=== PATIENT | female | born 1990 | race Caucasian/White ===

== ENCOUNTER 2018-02-28 19:39 | Emergency (ER) | payer OTHER ==
[2018-02-28 20:34] LABS: KETONE, URINE AUTO RFX NEGATIVE (NEGATIVE); LEUKOCYTE ESTERASE UR AUTO RFX NEGATIVE (NEGATIVE); NITRITE, URINE AUTO RFX NEGATIVE (NEGATIVE); RBC, URINE AUTO RFX 1 /HPF (0-3); SPECIFIC GRAVITY UR AUTO RFX 1.003 (1.002-1.035); SQUAM EPITHELIAL CELL UR AURFX 0 /HPF (0-6); WBC, URINE AUTO RFX 3 /HPF (0-3)
[2018-02-28 20:43] LABS: HEMATOCRIT 40.1 % (36.0-47.0); HEMOGLOBIN 13.1 g/dl (12.0-15.5); MEAN CORPUSCULAR HEMOGLOBIN 30.8 pg (27.0-33.0); MEAN CORPUSCULAR HGB CONC 32.7 g/dl (32.0-36.5); MEAN CORPUSCULAR VOLUME 94.1 fl (80.0-96.0); PLATELET COUNT, AUTOMATED 274 10^3/uL (150-450); RED BLOOD COUNT 4.26 10^6/uL (4.00-5.40); RED CELL DISTRIBUTION WIDTH 13.2 % (11.5-14.5); WHITE BLOOD COUNT 11.3 10^3/uL (4.0-10.0)
[2018-02-28 21:21] LABS: HCG, SERUM QUANTITATIVE 46003 MIU/ML
== END 2018-02-28 23:15 | disposition home or self-care (01) ==
LOC: M ED 19:39
DX: O34.81 Maternal care for other abnormalities of pelvic organs, first trimester (principal); O23.591 Infection of other part of genital tract in pregnancy, first trimester; O26.891 Other specified pregnancy related conditions, first trimester; Z3A.11 11 weeks gestation of pregnancy; Z79.899 Other long term (current) drug therapy
CPT/HCPCS: 76801

== ENCOUNTER 2018-08-24 15:04 | Inpatient (IN) | payer OTHER ==
[2018-08-24] VITALS (10 sets, daily range): BP systolic 125–154; BP diastolic 67–93
[~2018-08-24] VITALS: Ht 157.5 cm; Wt 102.0 kg
[~2018-08-24 15:04] MED LIST: FOLI1TAB11 PO; PRENCHW PO
[2018-08-24] MEDS ORDERED: ACETAMINOPHEN TAB 650MG DOSE (2X325MG) PO ONE (16:00)
--- NOTE | 2018-08-24 16:09 | IPNPDOC ---
Text Note Date of Service The patient was seen on 08/24/18. NOTE 27 y/o at 36+3 with severe range BP's in clinic today. Also with a few days of BEST although has a current sinusitis and pharyngitis, lots of coughing. No LOF/VB/ctx's. Pos FM. No Abd/RUQ pain. Slight visual changes but these have been present most of her , denies scotomata. 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 Had a elevated BP in the clinic in late MAY and a 24 hr UP that was in the 200's. Of note, this baby has a left club foot and she also has an adopted 2 yr old at home. 25FEB 32 weeks grth scan showed 52%ile BP here high normal 1+ LE edema NST at first with minimal rachael but with reposition mod rachael and accels present, no obvious ctx's a/p: Must r/o Pre-E. Ur Pr/Cr and CBC and Pre-E pnl. Cont monitoring for now. Serial BP's. SBAR to Dr Alexis for final dispo/review of labs. Sessions SESSIONS,SYLVIE Hinkle MD Aug 24, 2018 16:09
[2018-08-24 16:32] LABS: HEMATOCRIT 37.6 % (36.0-47.0); HEMOGLOBIN 12.1 g/dl (12.0-15.5); MEAN CORPUSCULAR HEMOGLOBIN 28.5 pg (27.0-33.0); MEAN CORPUSCULAR HGB CONC 32.2 g/dl (32.0-36.5); MEAN CORPUSCULAR VOLUME 88.7 fl (80.0-96.0); PLATELET COUNT, AUTOMATED 252 10^3/uL (150-450); RED BLOOD COUNT 4.24 10^6/uL (4.00-5.40); WHITE BLOOD COUNT 10.9 10^3/uL (4.0-10.0)
[2018-08-24 16:52] LABS: ALT/SGPT 14 U/L (12-78); BILIRUBIN,TOTAL 0.2 MG/DL (0.2-1.0); CREATININE FOR GFR 0.52 MG/DL (0.55-1.30); GLOMERULAR FILTRATION RATE > 60.0 (>60); LDH LACTATE DEHYDROGENASE 199 U/L (84-246)
[2018-08-24 16:55] LABS: CREATININE,RANDOM URINE 50.2 MG/DL; TOTAL PROTEIN,RANDOM URINE 11.1 MG/DL (0.0-12.0)
--- NOTE | 2018-08-24 17:20 | IPNPDOC ---
Text Note Date of Service The patient was seen on 08/24/18. NOTE Triage Note Bernadette is a 27yo at 36w3d who was sent to L&D for further eval when she had severe range BP's in clinic today. She has had a few days of BEST, but she currently has sinusitis and pharyngitis. No scotomata. No RUQ pain. No LOF/VB/ctx's. Pos FM. Notably, she had an elevated BP in the clinic in late May and a 24hr UP then was in the 200's. Jul 32wk growth scan: 52%ile Vitals: bp's normotensive, rare mild range General: WDWN, resting comfortably in bed (voice very hoarse) Abdomen: soft, gravid, NTTP Extremities: 1+ LE edema Cat I FHRT with +accels, -decels (appearance of decel when she put herself back on the monitor after using restroom but not true decel), mod rachael [place]: occasional ctx Labs: CBC: WBC 10.9, H/H 12.1/37.6, plt 252 creat 0.52, AST 13, ALT 14 urine prot/creat 0.22 Assessment: Bernadette is a 27yo at 36w3d with new diagnosis of GHTN, but no e/o pre-eclampsia. Normal creat/LFTs/H&H/plt and urine prot:creat 0.22. Vitals show normal to mild range bp. Benign exam. Reassuring assessment. Plan: -discharge home -plan for NST in two days on 08/26 and then 2x/week after that -discussed that patient will be induced with timing based on blood pressures -return precautions discussed Dr. Antonina Alexis MD VS,Porfirio, I+O VS, Porfirio I+O Laboratory Tests 08/24/18 16:14 Red Blood Count 4.24, Mean Corpuscular Volume 88.7, Mean Corpuscular Hemoglobin 28.5, Mean Corpuscular Hemoglobin Concent 32.2, Red Cell Distribution Width 15.3 H, Aspartate Amino Transf (AST/SGOT) 13, Alanine Aminotransferase (ALT/SGPT) 14, Lactate Dehydrogenase 199, Total Bilirubin 0.2, Uric Acid 6.0 Vital Signs Date Time Temp Pulse Resp B/P (MAP) Pulse Ox O2 Delivery O2 Flow Rate FiO2 08/24/18 16:17 97 18 132/86 (101) 08/24/18 15:33 99.0 98 Antonina Alexis MD Aug 24, 2018 17:20
--- NOTE | 2018-08-24 18:17 | REP ---
Clinical: well-being Comparison: None . Findings: Examination demonstrates a single live intrauterine in cephalic presentation. motion is identified by technologist. Placenta is noted posterior fundal and grade grade II without evidence for placenta previa or abruption. Amniotic fluid volume is normal. Cervix appears closed. Nuchal cord cannot be excluded. Gestational age by LMP 36 weeks 4 days with CHAD 09/17/2018 . Gestational age by first US 36 weeks 4 days with CHAD 09/17/2018 . FHR equals 152 beats per minute. Biophysical profile score: 8/8 Amniotic fluid index: 18.8 cm Umbilical cord SD ratio: 2.81 (1.76 - 2.76). Impression: Single live intrauterine in cephalic presentation. Biophysical profile score and amniotic fluid volume are normal. Nuchal cord cannot be excluded. Electronically Signed by Gilberto Springer MD 08/24/2018 06:10 P
[2018-08-24] MEDS: CEPACOL LOZENGE PO PRN (20:01)
[2018-08-24] MEDS: BENZONATATE 100 MG CAP PO SCH (20:01)
[2018-08-25] VITALS (26 sets, daily range): BP systolic 114–159; BP diastolic 57–95
[2018-08-25] MEDS: CEPACOL LOZENGE PO PRN ×3 (02:18→20:20)
[2018-08-25] MEDS: BENZONATATE 100 MG CAP PO SCH (04:11)
[2018-08-25] MEDS ORDERED: LR 1,000 ML IV SCH ×2 (08:55)
[2018-08-25] MEDS ORDERED: PENICILLIN G POTASSIUM IV 5 MU in D5W MINI-BAG PLUS 100 ML IV STA (08:55)
[2018-08-25] MEDS ORDERED: LACTATED RINGER'S 1000 ML IV STA (08:55)
[2018-08-25] MEDS ORDERED: PRENATAL VITAMINS CHEWABLE TABLET PO SCH (09:00)
[2018-08-25] MEDS ORDERED: ACETAMINOPHEN TAB 650MG DOSE (2X325MG) PO PRN (09:00)
[2018-08-25] MEDS ORDERED: OXYTOCIN DRIP 30 UNITS in APPROPRIATE DILUENT 1 EA IV SCH (09:00)
[2018-08-25 09:17] LABS: HEMATOCRIT 36.8 % (36.0-47.0); HEMOGLOBIN 11.9 g/dl (12.0-15.5); MEAN CORPUSCULAR HEMOGLOBIN 29.2 pg (27.0-33.0); MEAN CORPUSCULAR HGB CONC 32.3 g/dl (32.0-36.5); MEAN CORPUSCULAR VOLUME 90.4 fl (80.0-96.0); PLATELET COUNT, AUTOMATED 253 10^3/uL (150-450); RED BLOOD COUNT 4.07 10^6/uL (4.00-5.40); WHITE BLOOD COUNT 11.2 10^3/uL (4.0-10.0)
--- NOTE | 2018-08-25 09:29 | HPEPDOC ---
Obstetrical History & Physical General Date of Admission History of Present Illness 27 y/o at 36+4 with hx as described in previous observation notes. Brought in for r/o pre-e and dx'd with GHTN. Of note, also has had 10 spont decels, some prolonged over the past ~14 hours when I reviewed this with Dr Alexis this AM at change of shift. No LOF/VB/reg ctx's yet. Pos FM. Slight BEST that she also had yesterday that responded to tylenol, presumably from her pharyngitis/tonsilitis and coughing. Ths AM, her voice is improved and she also feels slightly better. Baby also has a likely left club foot. 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 ABDOMEN: Gravid and non-tender to touch. FETUS: Is vertex (VTX) by sterile vaginal examination (SVE), /-2 EXTREMITIES: No edema. No clonus. DTR's 1-2+ Vital Signs/I&O Vital Signs Date Time Temp Pulse Resp B/P (MAP) Pulse Ox O2 Delivery O2 Flow Rate FiO2 08/25/18 07:37 99.1 93 18 137/74 (95) 08/24/18 15:33 98 I&O- Last 24 Hours up to 6 AM 08/25/18 06:00 Intake Total 180 ml Balance 180 ml Laboratory Data 24H LABS Laboratory Tests 2 08/24/18 16:05: Urine Random Creatinine 50.2, Urine Random Total Protein 11.1 08/24/18 16:14: Nucleated Red Blood Cells % (auto) 0.0, Glomerular Filtration Rate > 60.0, Creatinine 0.52L, Aspartate Amino Transf (AST/SGOT) 13, Alanine Aminotransferase (ALT/SGPT) 14, Lactate Dehydrogenase 199, Total Bilirubin 0.2, Uric Acid 6.0 08/25/18 09:01: Serology Scanned Report Hepatitis B Testing CBC/BMP Laboratory Tests 08/24/18 16:14 Red Blood Count 4.24, Mean Corpuscular Volume 88.7, Mean Corpuscular Hemoglobin 28.5, Mean Corpuscular Hemoglobin Concent 32.2, Red Cell Distribution Width 15.3 H, Aspartate Amino Transf (AST/SGOT) 13, Alanine Aminotransferase (ALT/SGPT) 14, Lactate Dehydrogenase 199, Total Bilirubin 0.2, Uric Acid 6.0 Urine Culture: No Growth Pertinent Laboratoy Data Blood Type: A+ RBC Antibody Screen: Negative HIV: Negative Hepatitis B: Negative Hepatitis C: Unknown Rapid Plasma Reagin: Nonreactive Rubella: Immune Varicella: Immune Chlamydia/Gonorrhea: Negative Group B Streptococcus: Unknown (36+4) Quad Screen Test: Negative Cystic Fibrosis: Negative Glucose Tolerance Test: 134 Anatomy Ultrasound Ultrasound Date: Mar 11, 2018 Placenta Location: Posterior Normal Anatomy: No (possible spinal fusion anomaly and left club foot. MFM scans subsequently showed no likely spinal anomaly and confirmed left club foot.) Placenta Previa: No Steroid Therapy Steroid Therapy: No Assessment Variability: Moderate Accelerations: Positive Decelerations: Late (intermittent) Tocometer Contractions: Yes Frequency: irregular Assessment/Plan Assessment As above. IOL at 36+4 for almost hourly late decels although status is reassuring o/w. Likely cord compression as seems to be positional. Favorable cervix. Also has GHTN and a left club foot. Plan Admit and orient. Daytime Babysitter and consent. Diet: clears Group B Streptococcus (GBS) unk, -will Tx with PCN 4/2 Labs and intravenous (IV) per unit protocol. Counseled on Pitocin and induction of labor (IOL). Lactated Ringers (LR): Bolus 1000 mL if desires epidural, then at 125 mL/hr. Anticipate normal spontaneous delivery () C-S as appropriate. Beta as is <37 weeks Peds Ortho consult after delivery SESSIONS,SYLVIE Hinkle MD Aug 25, 2018 09:29
[2018-08-25] MEDS ORDERED: BETAMETHASONE SOLUSPAN 6MG/ML INJ 5ML (J0702) IM SCH (10:00)
--- NOTE | 2018-08-25 11:26 | IPNPDOC ---
Text Note Date of Service The patient was seen on 08/25/18. NOTE Pit was at 4 mu/min, when had a prolonged decel 4-5 min, good recovery and now with mod rachael and pos accels Cx 3-4/75/-2/vtx well applied, AROM with clr, blood tinged fluid, no mec Plan for AROM to help her get into active labor, no further pitocin, 6-8 hours to do so as long as baby is OK. Risk for significant, d/w pt and she agrees and states understanding. Sessions Porfirio [place], I+O VSPorfirio I+O Laboratory Tests 08/24/18 16:14 Red Blood Count 4.24, Mean Corpuscular Volume 88.7, Mean Corpuscular Hemoglobin 28.5, Mean Corpuscular Hemoglobin Concent 32.2, Red Cell Distribution Width 15.3 H, Aspartate Amino Transf (AST/SGOT) 13, Alanine Aminotransferase (ALT/SGPT) 14, Lactate Dehydrogenase 199, Total Bilirubin 0.2, Uric Acid 6.0 08/24/18 21:14 Red Blood Count 4.07, Mean Corpuscular Volume 90.4, Mean Corpuscular Hemoglobin 29.2, Mean Corpuscular Hemoglobin Concent 32.3, Red Cell Distribution Width 15.6 H Vital Signs Date Time Temp Pulse Resp B/P (MAP) Pulse Ox O2 Delivery O2 Flow Rate FiO2 08/25/18 10:15 99.3 110 18 132/83 (99) 08/24/18 15:33 98 I&O- Last 24 Hours up to 6 AM 08/25/18 06:00 Intake Total 180 ml Balance 180 ml SESSIONS,SYLVIE Hinkle MD Aug 25, 2018 11:26
[2018-08-25] MEDS ORDERED: FENTANYL 2MCG/ML ROPIVACAINE 0.2% IN 0.9% NACL 100ML IVBAG As Ordered ONE (12:13)
[2018-08-25] MEDS ORDERED: MORPHINE PRES-FREE INJ 10 MG/10 ML VIAL (J2274) As Ordered ONE (13:34)
[2018-08-25] MEDS ORDERED: REFRIGERATOR IV KEYS XX PRN (13:45)
[2018-08-25] MEDS ORDERED: ONDANSETRON 4MG/2ML VIAL (J2405) IV PRN (13:45)
[2018-08-25] MEDS ORDERED: ePHEDrine SULFATE 25 MG/5 ML(5MG/ML) SYRINGE IV PRN (13:45)
[2018-08-25] MEDS ORDERED: diphenhydrAMINE INJ 50MG/ML VIAL (J1200) IV PRN (13:45)
[2018-08-25] MEDS ORDERED: NALOXONE INJ 0.4 MG/1 ML VIAL (J2310) IV PRN (13:45)
[2018-08-25] MEDS ORDERED: EPIDURAL/PCA KEYS XX PRN (13:45)
[2018-08-25] MEDS ORDERED: EPIDURAL COMMENT XX SCH (13:45)
[2018-08-25] MEDS ORDERED: FENTANYL/ROPIVACAINE/NACL BAG 100 ML EPIDURAL SCH (13:45)
[2018-08-25] MEDS ORDERED: PENICILLIN G POTASSIUM IV 2.5 MU in APPROPRIATE DILUENT 1 EA IV SCH (14:00)
[2018-08-25] MEDS ORDERED: RHOGAM 300 MCG (1500 IU) INJ (J2790) IM SCH (14:45)
[2018-08-25] MEDS ORDERED: METHYLERGONOVINE MALEATE 0.2 MG TAB PO PRN (14:45)
[2018-08-25] MEDS ORDERED: ACETAMINOPHEN 500 MG TAB PO PRN (14:45)
[2018-08-25] MEDS ORDERED: IBUPROFEN 800 MG TAB PO PRN (14:45)
[2018-08-25] MEDS ORDERED: DIBUCAINE 1% OINTMENT 30GM TOP PRN (14:45)
[2018-08-25] MEDS ORDERED: DOCUSATE SODIUM 100 MG CAP PO PRN (14:45)
[2018-08-25] MEDS ORDERED: MOM 30ML SUSPENSION UDC PO PRN (14:45)
[2018-08-25 15:13] LABS: CORD GAS ABE A -5.1; CORD GAS ABE V -5.2; CORD GAS HCO3 A 22.4 MEQ/L; CORD GAS HCO3 V 20.9 MEQ/L; CORD GAS O2 SAT A 48.4 %; CORD GAS O2 SAT V 82.7 %; CORD GAS PCO2 A 50.5 mmHg; CORD GAS PCO2 V 42.6 mmHg; CORD GAS PH A 7.265 UNITS; CORD GAS PH V 7.308 UNITS; CORD GAS PO2 A 22.8 mmHg; CORD GAS PO2 V 38.6 mmHg; CORD GAS SBC V 19.9 MEQ/L; CORD GAS TCO2 V 22.2 MEQ/L
[2018-08-25] MEDS ORDERED: OXYTOCIN INJ 10 UNITS/ML VIAL (J2590) As Ordered ONE (17:06)
[2018-08-25] MEDS ORDERED: OXYTOCIN INJ 10 UNITS/ML VIAL (J2590) IV ONE (17:15)
[2018-08-26 06:00] VITALS: BP 127/75
--- NOTE | 2018-08-26 07:13 | IPNPDOC ---
Progress Note Date of Service: Aug 26, 2018 Progress Note 27 yo G2 now P1 s/p uncomplicated yesterday after being admitted for an IOL at 36+4 weeks for GHTN and NRFHT. Ms. Dang reports doing well this AM. She is ambulating, voiding, tolerating a regular diet, and has minimal lochia. Vitals - VSS, afebrile, normotensive, non tachycardic General - AAOX3, sitting up in bed, pleasant and conversant Abdomen - Fundus firm at U-1. No fundal tenderness. Extremities - trace edema in lower extremities Ms. Dang is doing well and is making an appropriate recovery. Undecided regarding future contraception. She is interested in potentially being discharged home today. Baby will likely need to stay another day due to prematurity. If Bernadette continues to do well this afternoon would consider dis charging home to [facility] status. DO Jarett VS, I&O, 24H, Fishbone Vital Signs/I&O Vital Signs Date Time Temp Pulse Resp B/P (MAP) Pulse Ox O2 Delivery O2 Flow Rate FiO2 08/26/18 06:00 97.6 79 18 127/75 (92) 08/25/18 18:00 95 I&O- Last 24 Hours up to 6 AM 08/26/18 06:00 Intake Total 2600 ml Output Total 900 ml Balance 1700 ml Laboratory Data 24H LABS Laboratory Tests 2 08/25/18 09:01: Serology Scanned Report Hepatitis B Testing 08/25/18 15:01: Cord Arterial Blood pH 7.265, Cord Arterial Blood PCO2 50.5, Cord Arterial Blood PO2 22.8, Cord Arterial Blood HCO3 22.4, Cord Arterial Blood Total CO2 24.0, Cord Arterial Blood Base Excess -5.1, Cord Arterial Base Excess (Standard 19.0, Cord Arterial Bld Oxygen Saturation 48.4, Cord Venous Blood pH 7.308, Cord Venous Blood PCO2 42.6, Cord Venous Blood PO2 38.6, Cord Venous Blood HCO3 20.9, Cord Venous Blood Total CO2 22.2, Cord Venous Base Excess (Actual) -5.2, Cord Venous Base Excess (Standard) 19.9, Cord Venous Blood Oxygen Saturation 82.7 LEONARD BARRERA DO Aug 26, 2018 07:13
[2018-08-26 07:35] LABS: HEMATOCRIT 36.1 % (36.0-47.0); HEMOGLOBIN 11.4 g/dl (12.0-15.5); MEAN CORPUSCULAR HEMOGLOBIN 28.3 pg (27.0-33.0); MEAN CORPUSCULAR HGB CONC 31.6 g/dl (32.0-36.5); MEAN CORPUSCULAR VOLUME 89.6 fl (80.0-96.0); PLATELET COUNT, AUTOMATED 268 10^3/uL (150-450); RED BLOOD COUNT 4.03 10^6/uL (4.00-5.40); WHITE BLOOD COUNT 21.1 10^3/uL (4.0-10.0)
[2018-08-26] MEDS ORDERED: PRENATAL VITAMINS CHEWABLE TABLET PO SCH (09:00)
--- NOTE | 2018-08-26 10:08 | DN ---
DATE OF DELIVERY: 08/25/2018 This lady is a 2, para 1, admitted for gestational hypertension, nonreassuring heart, was induced, had a spontaneous rupture of membranes and rapidly precipitated to fully dilated. Pushed over a first-degree tear a live female weighing 2500 grams (5 pounds 8 ounces), score of 8 and 9 at one and five minutes, respectfully. Cord was around the neck tight times two. Baby was noted to have a clubfoot prominent on the left side. The placenta delivered spontaneously, thereafter. Three-vessel cord, membranes and tissues intact. Total blood loss approximately 20 mL. The uterus contracted well under Pitocin. The anterior, posterior and lateral parish were intact. The first-degree tear was oversewn in usual fashion with a #2-0 Vicryl and a [id number]. Sphincter was intact. Lateral, anterior and materials director parish were intact. Patient and baby tolerated procedure well.
[2018-08-26] MEDS ORDERED: MAPA500T2 PO (14:36)
[2018-08-26] MEDS ORDERED: CEPA3LOZ MT (14:36)
[2018-08-26] MEDS ORDERED: COLA100C5 PO (14:36)
[2018-08-26] MEDS ORDERED: IBUP-1114 PO (14:36)
[2018-08-26] MEDS ORDERED: NUPE1OIN2 TOP (14:36)
== END 2018-08-26 15:00 | disposition home or self-care (01) | DRG 807 ==
LOC: M LDO 15:04 → M LDI 08-25 08:38 → M OBS 08-25 16:50
PROVIDERS: ADMIT Obstetrics & Gynecology; ATTEND Obstetrics & Gynecology
PROC: 10E0XZZ Delivery of Products of Conception, External Approach (ICD-10-PCS; principal; 2018-08-25)
PROC: 0HQ9XZZ Repair Perineum Skin, External Approach (ICD-10-PCS; 2018-08-25)
PROC: 3E033VJ Introduction of Other Hormone into Peripheral Vein, Percutaneous Approach (ICD-10-PCS; 2018-08-25)
PROC: 10907ZC Drainage of Amniotic Fluid, Therapeutic from Products of Conception, Via Natural or Artificial Opening (ICD-10-PCS; 2018-08-25)
DX: O76 Abnormality in fetal heart rate and rhythm complicating labor and delivery (principal); Z37.0 Single live birth; Z3A.36 36 weeks gestation of pregnancy; O13.3 Gestational [pregnancy-induced] hypertension without significant proteinuria, third trimester; O70.0 First degree perineal laceration during delivery; O69.1XX0 Labor and delivery complicated by cord around neck, with compression, not applicable or unspecified